=== PATIENT | male | born 1960 | race African-American/Black ===

== ENCOUNTER 2018-05-11 09:21 | Emergency (ER) | payer OTHER, MEDICARE ==
[~2018-05-11] VITALS: Ht 185.4 cm; Wt 114.0 kg
[2018-05-11] MEDS ORDERED: BACITRACIN ZINC OINT UDPKT TOP ONE (10:15)
[2018-05-11] MEDS ORDERED: LIDOCAINE HCL/PF 1% 10 MG/ML 5ML VIAL IJ ONE ×2 (10:15)
[2018-05-11] MEDS ORDERED: TETANUS, DIPHTHERIA, PERTUSSIS VAC/PF 0.5ML (>7YR OLD) IM ONE (10:15)
[2018-05-11] MEDS ORDERED: LIDOCAINE HCL 1% 10 MG/ML 10ML VIAL ONE (10:18)
[2018-05-11 12:30] VITALS: BP 134/85
== END 2018-05-11 12:34 | disposition home or self-care (01) ==
LOC: ER 10:00
DX: S01.81XA Laceration without foreign body of other part of head, initial encounter (principal); F20.9 Schizophrenia, unspecified; W45.8XXA Other foreign body or object entering through skin, initial encounter; Y93.89 Activity, other specified; Y92.89 Other specified places as the place of occurrence of the external cause; Y99.8 Other external cause status
CPT/HCPCS: 12011; 90471; 90715; 99283; J3490